=== PATIENT | female | born 1995 | race Caucasian/White ===

== ENCOUNTER 2016-11-07 22:21 | Emergency (ER) | payer OTHER ==
[2016-11-07 22:33] VITALS: BP 128/89; PULSE 113; RESP 18; TEMP 98.8; O2SAT 97
[2016-11-07] MEDS ORDERED: AZITHROMYCIN 250 MG TAB PO ONE (22:35)
--- NOTE | 2016-11-07 22:39 | EDPHY ---
H & P Time Seen by Provider: 11/07/16 22:30 HPI/ROS: 20-year-old female presents complaining of sore throat, swollen glands and mild stomachache earlier today. She has been exposed to multiple family members who have all been recently diagnosed with strep. She is allergic to amoxicillin Review of systems As per HPI General no fever no chills no weakness HEENT no eye pain no eye discharge. No eye redness, positive sore throat Respiratory no cough, no shortness of breath Cardiac no chest pain, no peripheral edema GI no abdominal pain, no diarrhea, no constipation, no nausea, no vomiting no flank pain, no hematuria, no dysuria Musculoskeletal no myalgias, no joint pain Heme no easy bruising, no easy bleeding Endo no polyuria, no polydipsia Skin no rashes, no pruritus Neuro no syncope, no dizziness, no headaches Psych is no suicidal ideation, no homicidal ideation Past Medical/Surgical History: Noncontributory Smoking Status: Never smoked Physical Exam: 20-year-old female Alert and oriented in no acute distress nontoxic appearance, afebrile Atraumatic normocephalic Extraocular muscles intact, anicteric Neck-supple, positive anterior cervical lymphadenopathy mildly tender to palpation Oropharynx positive enlarged tonsils, erythematous, no uvular deviation, no purulent exudate, tolerating own secretions, no trismus Lungs clear to auscultation bilaterally Heart regular rate and rhythm Abdomen normoactive bowel sounds soft nontender Extremities no cyanosis clubbing edema Skin no rash Constitutional: Initial Vital Signs Temperature (C) 37.1 C 11/07/16 22:31 Heart Rate 113 H 11/07/16 22:31 Respiratory Rate 18 11/07/16 22:31 Blood Pressure 128/89 H 11/07/16 22:31 O2 Sat (%) 97 11/07/16 22:31 O2 Delivery Mode Room Air Allergies/Adverse Reactions: amoxicillin Allergy (Verified 11/07/16 22:30) gabapentin Allergy (Verified 11/07/16 22:30) Home Medications: Medication Instructions Recorded AZITHROMYCIN [Z-PACK] 250 mg PO DAILY #6 tab 11/07/16 Clindamycin Top Gel 11/07/16 Soraya 28 Tablet 11/07/16 Medical Decision Making ED Course/Re-evaluation: Medical decision making in your course Patient seen and evaluated for sore throat Exposed several family members with strep throat Physical exam consistent with strep throat Rapid strep positive Impression Acute streptococcal pharyngitis Plan Given 1st dose of azithromycin 500 mg p.o. in he are Home with prescription for azithromycin follow-up primary care physician - Data Points Laboratory Results: 11/07/16 22:20 Group A Strep Screen POSITIVE H (NEGATIVE) Medications Given: Discontinued Medications Azithromycin (Zithromax) 500 mg PO EDNOW ONE PRN Reason: Protocol Stop: 11/07/16 22:36 Last Admin: 11/07/16 22:46 Dose: 500 mg Departure - Departure Disposition: Home, Routine, Self-Care Clinical Impression: Acute streptococcal pharyngitis Condition: Good Instructions: Strep Throat (ED) Referrals: NONE *PRIMARY CARE P,. [Primary Care Provider] - As per Instructions Prescriptions: AZITHROMYCIN [Z-PACK] 250 mg PO DAILY #6 tab
== END 2016-11-07 22:45 | disposition home or self-care (01) ==
LOC: CED 22:21
DX: J02.0 Streptococcal pharyngitis (principal)
CPT/HCPCS: 87880-PO